=== PATIENT | male | born 1980 | race Caucasian/White ===

== ENCOUNTER → 2017-05-08 | Outpatient (CLI) | payer BC ==
[2017-05-08 12:07] LABS: ALANINE AMINOTRANSFERASE 25 U/L (0-55); ALBUMIN 4.7 GM/DL (3.2-4.5); ANION GAP 6 MMOL/L (5-14); ASPARTATE AMINO TRANSFERASE 22 U/L (5-34); BILIRUBIN,TOTAL 0.5 MG/DL (0.1-1.0); BLOOD UREA NITROGEN 15 MG/DL (7-18); BUN/CREATININE RATIO 16; CARBON DIOXIDE 31 MMOL/L (21-32); CHLORIDE 101 MMOL/L (98-107); CREATININE SERUM 0.96 MG/DL (0.60-1.30); GFR ESTIMATED > 60; SODIUM 138 MMOL/L (135-145); TOTAL PROTEIN 7.7 GM/DL (6.4-8.2); hs C REACTIVE PROTEIN 0.03 MG/DL (0.00-0.50)
[2017-05-08 13:00] LABS: GLUCOSE 59 MG/DL (70-105)
--- NOTE | 2017-05-08 13:23 | Diagnostic Imaging Report ---
Ultrasound of the neck. INDICATION: Vitamin D deficiency. FINDINGS: The right thyroid lobe is 4.3 x 1.8 x 1.2 cm. The left lobe is 4.5 x 1.8 x 1.4 cm. The thyroid parenchyma is fairly homogeneous with no focal nodule seen. No nodules around the thyroid detected by ultrasound to suggest a parathyroid adenoma or cervical lymphadenopathy. IMPRESSION: Unremarkable exam. Dictated by: Dictated on workstation # [id number]
== END ==
LOC: RAD 11:24
PROVIDERS: ATTEND Internal Medicine Gastroenterology
DX: E55.9 Vitamin D deficiency, unspecified (principal); R79.9 Abnormal finding of blood chemistry, unspecified; M62.838 Other muscle spasm; R10.11 Right upper quadrant pain
CPT/HCPCS: 36415; 76536; 80053; 85652; 86141

== ENCOUNTER → 2017-05-12 | Outpatient (CLI) | payer BC | LOC: LAB 08:34 | PROVIDERS: ATTEND Internal Medicine Gastroenterology | DX: R79.89 Other specified abnormal findings of blood chemistry (principal) | CPT/HCPCS: 36415; 82947 ==

== ENCOUNTER 2021-11-22 11:03 | Emergency (ER) | payer BC ==
[~2021-11-22] VITALS: Ht 170.2 cm; Wt 64.9 kg
--- NOTE | 2021-11-22 11:16 | ED Cough/URI ---
General Chief Complaint: Cough/Cold/Flu Symptoms Stated Complaint: SOA - ABNORMAL EKG Source: patient Exam Limitations: no limitations History of Present Illness Date Seen by Provider: November 22, 2021 Time Seen by Provider: 11:14 Initial Comments Patient is a 41-year-old male with a history of smoking, allergies who presents ED with a wet productive cough and shortness of breath over the past 3 to 4 weeks. Patient ports nasal congestion with a mild scratchy throat. Patient states he has been having some shortness of breath. States difficulty catching his breath at times. This is not more prominent with exertion. He denies of any chest pain abdominal pain fever vomiting diarrhea. Has been taking Zyrtec as he thought his symptoms were related to allergies. Went to [facility] today and had an abnormal EKG who recommended come to the ED for further evaluation. No known history of coronary artery disease CHF, COPD or asthma. Patient states he just feels congested in his chest and sinuses. Denies headache visual changes, numbness and tingling to extremities, unilateral muscle weakness or sensory changes. No recent travels or surgeries or leg swelling. Allergies and Home Medications Allergies Coded Allergies: No Allergy Information Available (Unverified , 11/22/21) Patient Home Medication List Home Medication List Reviewed: Yes Albuterol Sulfate (Proair Hfa) 1 Puff Puff, 2 PUFF IH Q4H PRN for DYSPNEA Prescribed by: DIANELYS GIBSON on 11/22/21 1318 Azithromycin (Azithromycin) 250 Mg Tablet, 250 MG PO UD Prescribed by: DIANELYS GIBSON on 11/22/211317 Prednisone (Prednisone) 50 Mg Tab, 50 MG PO DAILY Prescribed by: DIANELYS GIBSON on 11/22/21 1318 Review of Systems Review of Systems Constitutional: No chills, No diaphoresis, No malaise, No weakness EENTM: nose congestion; No ear pain, No blurred vision, No double vision, No hoarseness, No mouth pain, No mouth swelling Respiratory: cough, short of breath Cardiovascular: No chest pain, No edema, No palpitations, No syncope Gastrointestinal: No abdominal pain, No diarrhea, No nausea, No vomiting Genitourinary: No decreased output, No discharge Musculoskeletal: No back pain, No joint pain Skin: No change in color, No change in hair/nails All Other Systems Reviewed Negative Unless Noted: Yes Physical Exam Vital Signs - First Documented 11/22/21 11/22/21 11:07 13:35 Temp 37.2 Pulse 90 Resp 19 B/P (MAP) 158/101 (120) Pulse Ox 96 O2 Delivery Room Air Capillary Refill : Height: '" Weight: lbs. oz. kg; BMI Method: General Appearance: WD/WN, no apparent distress Eyes: Bilateral Eye Normal Inspection, Bilateral Eye PERRL, Bilateral Eye EOMI HEENT: PERRL/EOMI, normal ENT inspection, TMs normal, pharynx normal Neck: non-tender, full range of motion, supple, normal inspection Respiratory: chest non-tender, lungs clear, normal breath sounds, no respiratory distress, no accessory muscle use Cardiovascular: regular rate, rhythm, no edema, no gallop, no JVD Gastrointestinal: normal bowel sounds, non tender, soft, no organomegaly Extremities: normal range of motion, non-tender, normal inspection, no pedal edema, no calf tenderness Neurologic/Psychiatric: disassembler product II-XII nml as tested, no motor/sensory deficits, a lert, normal mood/affect, oriented x 3 Skin: normal color, warm/dry Progress/Results/Core Measures Suspected Sepsis SIRS Temperature: Pulse: Respiratory Rate: Laboratory Tests 11/22/21 11:29: White Blood Count 8.4 Blood Pressure / Mean: Laboratory Tests 11/22/21 11:29: Creatinine 0.87, INR Comment 1.0, Platelet Count 273, Total Bilirubin 0.5 Results/Orders Lab Results Laboratory Tests Test 11/22/21 11:29 Range/Units White Blood Count 8.4 4.3-11.0 10^3/uL Red Blood Count 4.93 4.30-5.52 10^6/uL Hemoglobin 16.4 13.3-17.7 g/dL Hematocrit 47 40-54 % Mean Corpuscular Volume 95 80-99 fL Mean Corpuscular Hemoglobin 33 25-34 pg Mean Corpuscular Hemoglobin Concent 35 32-36 g/dL Red Cell Distribution Width 13.8 10.0-14.5 % Platelet Count 273 130-400 10^3/uL Mean Platelet Volume 10.0 9.0-12.2 fL Immature Granulocyte % (Auto) 1 % Neutrophils (%) (Auto) 67 42-75 % Lymphocytes (%) (Auto) 21 12-44 % Monocytes (%) (Auto) 10 0-12 % Eosinophils (%) (Auto) 1 0-10 % Basophils (%) (Auto) 1 0-10 % Neutrophils # (Auto) 5.7 1.8-7.8 10^3/uL Lymphocytes # (Auto) 1.7 1.0-4.0 10^3/uL Monocytes # (Auto) 0.8 0.0-1.0 10^3/uL Eosinophils # (Auto) 0.1 0.0-0.3 10^3/uL Basophils # (Auto) 0.1 0.0-0.1 10^3/uL Immature Granulocyte # (Auto) 0.1 0.0-0.1 10^3/uL Prothrombin Time 13.1 12.2-14.7 SEC INR Comment 1.0 0.8-1.4 Activated Partial Thromboplast Time 30 24-35 SEC D-Dimer 0.53 H 0.00-0.49 UG/ML Sodium Level 136 135-145 MMOL/L Potassium Level 3.9 3.6-5.0 MMOL/L Chloride Level 102 98-107 MMOL/L Carbon Dioxide Level 26 21-32 MMOL/L Anion Gap 8 5-14 MMOL/L Blood Urea Nitrogen 15 7-18 MG/DL Creatinine 0.87 0.60-1.30 MG/DL Estimat Glomerular Filtration Rate 110 BUN/Creatinine Ratio 17 Glucose Level 108 H 70-105 MG/DL Calcium Level 9.5 8.5-10.1 MG/DL Corrected Calcium 9.3 8.5-10.1 MG/DL Magnesium Level 2.1 1.6-2.4 MG/DL Total Bilirubin 0.5 0.1-1.0 MG/DL Aspartate Amino Transf (AST/SGOT) 22 5-34 U/L Alanine Aminotransferase (ALT/SGPT) 17 0-55 U/L Alkaline Phosphatase 72 40-136 U/L Myoglobin 25.7 10.0-92.0 NG/ML Troponin I < 0.028 <0.028 NG/ML B-Type Natriuretic Peptide < 10.0 <100.0 PG/ML Total Protein 7.6 6.4-8.2 GM/DL Albumin 4.3 3.2-4.5 GM/DL Lipase 55 8-78 U/L My Orders Orders - NELLIE COKO PA Cbc With Automated Diff (11/22/21 11:13) Magnesium (11/22/21 11:13) Chest 1 View, Ap/Pa Only (11/22/21 11:13) Ekg Tracing (11/22/21 11:13) Comprehensive Metabolic Panel (11/22/21 11:13) Myoglobin Serum (11/22/21 11:13) Protime With Inr (11/22/21 11:13) Partial Thromboplastin Time (11/22/21 11:13) Monitor-Rhythm Ecg Trace Only (11/22/21 11:13) Ed Iv/Invasive Line Start (11/22/21 11:13) Lipase (11/22/21 11:13) Bnp [place] (11/22/21 11:13) Troponin I [place] (11/22/21 11:13) Fibrin Degradation Products (11/22/21 12:35) Ct Angio Chest W (11/22/21 12:54) Medications Given in ED Current Medications Medications Dose Ordered Sig/John Route Start Time Stop Time Status Last Admin Dose Admin Iohexol 100 ml ONCE ONCE IV 11/22/21 13:30 11/22/21 13:31 DC 11/22/21 13:22 62 ML Sodium Chloride 10 ml NEEDED PRN IV 11/22/21 13:30 11/22/21 13:45 DC 11/22/21 13:22 10 ML Sodium Chloride 100 ml ONCE ONCE IV 11/22/21 13:30 11/22/21 13:31 DC 11/22/21 13:22 80 ML Vital Signs/I&O 11/22/21 11/22/21 11:07 13:35 Temp 37.2 Pulse 90 82 Resp 19 20 B/P (MAP) 158/101 (120) 113/95 Pulse Ox 96 95 O2 Delivery Room Air Room Air Capillary Refill : ECG Comment Sinus rhythm, possible left atrial argument, possible right ventricular hypertrophy, 89 bpm, QRS duration 90 MS, QTC 382 MS. Departure Communication (PCP) Patient with a continuous cough and shortness of breath over the past 3 to 4 weeks. History of smoking. Patient slightly hypertensive without known history of hypertension. Family cardiac history. Abnormal EKG at [facility] the day when he was evaluated for the cough. Denies of any chest pain abdominal pain. Does have some shortness of breath but this appears to be with the cough. Reports nasal congestion. History of smoking. No history of COPD or asthma. No significant wheezing or signs of respiratory distress. No recent travels or surgeries. EKG did show noticed sinus rhythm. Possible right ventricular hypertrophy left atrial enlargement. Septal T wave inversion. No ST elevation or depression. This may be benign or chronic however need to rule out potential etiologies. Patient troponin was negative. BNP negative. Did have a slight elevated D-dimer. CT angio chest negative for pneumonia, PE. Lab work was otherwise unremarkable here. Patient appears well and nontoxic. Symptoms likely more upper respiratory versus allergies. Due to his history of smoking and continues cough will discharge with Z-Gray for any atypical infections. Albuterol inhaler for the shortness of breath with short burst steroids. Discussed smoking cessation. Recommend cardiology outpatient follow-up for further cardiac evaluation. Provided this and discharge instructions. Return precautions were discussed. Impression Primary Impression: URI (upper respiratory infection) Disposition: 01 HOME, SELF-CARE Condition: Stable Departure-Patient Inst. Decision time for Depature: 13:16 Referrals: [facility] (PCP/Family) Primary Care Physician SPRING FORD MD FACP FACC CCDS Patient Instructions: Cough, Adult (DC) Add. Discharge Instructions: All discharge instructions reviewed with patient and/or family. Voiced understanding. Scripts Prednisone (Prednisone) 50 Mg Tab 50 MG PO DAILY, #5 TAB Prov: NELLIE COOK 11/22/21 Azithromycin (Azithromycin) 250 Mg Tablet 250 MG PO UD, #6 TAB TAKE 2 TABLETS ON DAY ONE THEN TAKE 1 TABLET DAILY FOR FOUR MORE DAYS Prov: NELLIE COOK 11/22/21 Albuterol Sulfate (PROAIR HFA) 1 Puff Puff 2 PUFF IH Q4H PRN for DYSPNEA, #1 EA 1 PUFF = 90 MCG Prov: NELLIE COOK 11/22/21 Work/School Note: Work Release Form Date Seen in the Emergency Department: November 22, 2021 Return to Work: November 24, 2021 NELLIE COOK November 22, 2021 11:16
[2021-11-22 11:38] LABS: BASOPHILS # (AUTO) 0.1 10^3/uL (0.0-0.1); BASOPHILS % (AUTO) 1 % (0-10); EOSINOPHILS # (AUTO) 0.1 10^3/uL (0.0-0.3); EOSINOPHILS % (AUTO) 1 % (0-10); HEMATOCRIT 47 % (40-54); HEMOGLOBIN 16.4 g/dL (13.3-17.7); LYMPHOCYTES # (AUTO) 1.7 10^3/uL (1.0-4.0); LYMPHOCYTES % (AUTO) 21 % (12-44); MEAN CORPUSCULAR HEMOGLOBIN 33 pg (25-34); MEAN CORPUSCULAR HGB CONC 35 g/dL (32-36); MEAN CORPUSCULAR VOLUME 95 fL (80-99); MONOCYTES # (AUTO) 0.8 10^3/uL (0.0-1.0); MONOCYTES % (AUTO) 10 % (0-12); NEUTROPHILS # (AUTO) 5.7 10^3/uL (1.8-7.8); NEUTROPHILS % (AUTO) 67 % (42-75); PLATELET COUNT 273 10^3/uL (130-400); WHITE BLOOD COUNT 8.4 10^3/uL (4.3-11.0)
[2021-11-22 11:50] LABS: ALBUMIN 4.3 GM/DL (3.2-4.5); POTASSIUM 3.9 MMOL/L (3.6-5.0)
[2021-11-22 11:52] LABS: CALCIUM 9.5 MG/DL (8.5-10.1); PROTHROMBIN TIME PATIENT 13.1 SEC (12.2-14.7)
[2021-11-22 11:53] LABS: TOTAL PROTEIN 7.6 GM/DL (6.4-8.2)
[2021-11-22 11:55] LABS: BILIRUBIN,TOTAL 0.5 MG/DL (0.1-1.0)
[2021-11-22 11:57] LABS: CREATININE SERUM 0.87 MG/DL (0.60-1.30)
[2021-11-22 11:59] LABS: MAGNESIUM 2.1 MG/DL (1.6-2.4)
--- NOTE | 2021-11-22 12:07 | Diagnostic Imaging Report ---
INDICATION: Chest pain. COMPARISON: No prior examinations are available for comparison. FINDINGS: The heart size, mediastinal configuration, and pulmonary vascularity are within normal limits. There is no pleural effusion, pneumothorax, or pneumonia. The osseous structures are unremarkable. IMPRESSION: No acute cardiopulmonary abnormality. Dictated by: Dictated on workstation # [id number]
[2021-11-22] MEDS ORDERED: PRD50T PO (13:18)
[2021-11-22] MEDS ORDERED: AZIT250T12 PO (13:18)
[2021-11-22] MEDS ORDERED: RT-ALBUINH IH (13:18)
[2021-11-22] MEDS ORDERED: CATHETER FLUSH 10 ML SYR IV PRN (13:30)
[2021-11-22] MEDS ORDERED: IOHEXOL 350 MG/ML 100 ML (OMNIPAQUE 350) VIAL IV ONE (13:30)
[2021-11-22] MEDS ORDERED: HOLD METFORMIN - RECEIVED CONTRAST 20 ML VIAL IV SCH (13:30)
[2021-11-22] MEDS ORDERED: NS 100 ML (IVPB) BAG IV ONE (13:30)
--- NOTE | 2021-11-22 13:31 | Diagnostic Imaging Report ---
EXAMINATION: CT angiography of the chest. TECHNIQUE: Contrast enhanced thin section helical images were obtained through the chest with intravenous contrast timed for the optimal opacification of the arterial structures per CTA protocol. Post-processing, reconstructions and interpretation of angiographic images of the vessels was performed. 3D MIP reconstructions were performed and reviewed. All CT scans use one or more of the following dose optimizing techniques: automated exposure control, MA and/or KvP adjustment based on a patient size and exam type, or iterative reconstruction. HISTORY: Chest pain and dyspnea. COMPARISON: None available. FINDINGS: Vascular: No filling defects within the pulmonary arteries. Thoracic aorta is normal in caliber. Thyroid: The thyroid is normal. Mediastinum: Heart size is normal without significant pericardial effusion. No suspicious lymphadenopathy. Lungs and airways: The lungs are clear without consolidation, pleural effusion, or pneumothorax. The airways are normal. Upper abdomen: The subphrenic structures are normal. Musculoskeletal: No suspicious osseous lesion or compression fracture. IMPRESSION: 1. No findings of pulmonary embolus or other acute abnormality in the chest. Dictated by: Dictated on workstation # [id number]
[2021-11-22 13:35] VITALS: BP 113/95
== END 2021-11-22 13:44 | disposition home or self-care (01) ==
LOC: EDUNIT# 11:03 → ER 11:04
DX: J06.9 Acute upper respiratory infection, unspecified (principal); R79.1 Abnormal coagulation profile; R03.0 Elevated blood-pressure reading, without diagnosis of hypertension; Z87.891 Personal history of nicotine dependence
CPT/HCPCS: 36415; 71045; 71275; 80053; 83690; 83735; 83874; 83880; 84484; 85025; 85379; 85610; 85730; 93005; 93041